=== PATIENT | female | born 1950 ===

== ENCOUNTER → 2018-05-25 | Day surgery (SDC) | payer OTHER ==
[2016-08-08 07:23] VITALS: BMI 25.4
[~2018-05-25] MED LIST: HYDROmorphone 0.5 mg/0.5 ml ISec IVP PRN; Iohexol 240 (50 ml) ONE; Lidocaine 2% Jelly (Uro-Jet) ONE; Midazolam 2 MG/2 ML VIAL ONE; Propofol 10 mg/ml Inj (20 ML) ONE; cefTRIAXone IV 1 gm in Dextros 50 ML IVPB ONE
--- NOTE | 2018-05-25 09:14 | PCM.SURG1 ---
Surgeon's Initial Post Op Note - Surgeon's Notes Surgeon: Manfred Christopher Spragger: none Type of Anesthesia: IV Sedation Pre-Operative Diagnosis: Hematuria Operative Findings: cystitis Post-Operative Diagnosis: same Operation Performed: cysto. bilat rtg pyelogram. bladder bx and fulg. EUA Specimen/Specimens Removed: urine, bladder bx Estimated Blood Loss: EBL {In ML}: 0 Blood Products Given: N/A Drains Used: No Drains Post-Op Condition: Good Date of Surgery/Procedure: 05/25/18 Time of Surgery/Procedure: 08:55
[2018-05-25 11:46] VITALS: O2SAT 96
[2018-05-25 11:50] VITALS: BP 110/64; PULSE 75; RESP 18; TEMP 97.6
--- NOTE | 2018-05-25 13:07 | RAD ---
Date of service: 05/25/2018 HISTORY: HEMATURIA COMPARISON: No prior. FINDINGS: BOWEL: Normal. No obstruction. No free air. BONES: Degenerative changes. OTHER FINDINGS: None. IMPRESSION: No active disease.
--- NOTE | 2018-05-25 18:31 | RAD ---
Date of service: 05/25/2018 PROCEDURE: Intraoperative Fluoroscopy. HISTORY: HEMATURIA FINDINGS: Fluoroscopic assistance was provided for bilateral retrograde study. Please refer to the operative report from Dr. VALDES, MAYAGUEZ. Total fluoroscopic time (continuous mode) utilized during the procedure 10.1 (seconds) Dose report: DLP (mGy-cm): 9.8
--- NOTE | 2018-05-25 20:58 | OP ---
PROCEDURE DATE: 05/25/2018 PREOPERATIVE DIAGNOSIS: History of hematuria. POSTOPERATIVE DIAGNOSES: History of hematuria, cystitis. PROCEDURES: Cystoscopy. Bilateral retrograde pyelogram. Bladder biopsy and fulguration. Exam under anesthesia. OPERATING SURGEON: Inna Christopher MD PROCEDURE FOLLOWS: Retail Shift Leader film of the abdomen was obtained. The patient received perioperative antibiotics. The patient was placed in lithotomy position. After administration of anesthesia via sedation, the genitalia were prepped and draped in a sterile fashion. Procedure was performed under video endoscopic control as well as under fluoroscopic control. A 22-Armenian cystoscope sheath was introduced with obturator. Urine from the bladder was sent for bacteriologic examination. Urethra and bladder were inspected with 30-degree and 70-degree lenses. FINDINGS: There was no bladder tumor. There is no bladder stone. There was mild bladder trabeculation. There was moderate inflammation of the trigone. The ureteral orifices were normal position and shape. There were no focal lesions within the bladder. There was no bladder diverticulum. Occlusive tip retrograde ureteral pyelogram was performed. Iodinated contrast dye was instilled via cone tip catheter into the right ureteral orifice. The urine and kidneys were viewed sequentially with fluoroscopy. Iodinated contrast dye was instilled via cone tip catheter into the left ureteral orifice. The ureters and kidney were viewed sequentially. The retrograde pyelogram demonstrated no evidence of filling defect or obstruction within the ureters or collecting systems. Post-drainage film was subsequently obtained as well and revealed good drainage from both collecting systems. There was abnormal bladder mucosa on the trigone suggesting inflammation. There was slightly granular and reddened focal mucosal changes with some punctate areas of erythema. A sales representative business courses area with cold cup biopsy of the mid trigone was performed using flexible cold cup biopsy forceps. Fulguration was performed at the biopsy site for hemostasis. Hemostasis was complete. The bladder was reinspected with 70-degree lens and confirmed the above findings. The bladder was then drained. Cystoscope sheath was removed. Exam under anesthesia/bimanual examination was performed. There was no abnormal pelvic mass fixation or induration. There was no adnexal mass. The uterus was palpable and mobile. The patient tolerated the procedure without complication. Inna Christopher, MD cc: Shaik Keila MD [facility] # [id number]
== END | disposition home or self-care (01) ==
LOC: C.SDS 05:41
PROVIDERS: ATTEND Urology
DX: N30.31 Trigonitis with hematuria (principal)
CPT/HCPCS: 52005; 52204; 74018; 82948; 87086; 88305; J0696; Q9966

== ENCOUNTER 2018-06-28 02:04 | Emergency (ER) | payer OTHER ==
[2018-06-28 02:06] VITALS: BMI 25.4
--- NOTE | 2018-06-28 03:52 | C.PDOC ---
History Of Present Illness The patient is a 68-year-old female who states she felt a pimple in her left upper back earlier today. She asked her to scratch the area, and notes the area has not stopped bleeding since. She denies pain and has no other complaints at this time. Time Seen by Provider: 06/28/18 02:30 Chief Complaint (Nursing): Abnormal Skin Integrity History Per: Patient History/Exam Limitations: no limitations Onset/Duration Of Symptoms: Hrs Current Symptoms Are (Timing): Still Present Location Of Injury: Left: Back (upper ) Quality Of Symptoms: denies: Painful Additional History Per: Patient Past Medical History Reviewed: Historical Data, Nursing Documentation, Vital Signs Vital Signs: Last Vital Signs Temp 97.8 F 06/28/18 04:36 Pulse 70 06/28/18 04:36 Resp 14 06/28/18 04:36 BP 130/80 06/28/18 04:36 Pulse Ox 98 06/28/18 04:36 - Medical History PMH: Anxiety (NO MEDS. TAKEN), Colonic Polyps, Depression, Gastritis, HTN, Hypercholesterolemia, Kidney Stones (AGE 20/PASSED NO SURGERY), Chronic Kidney Disease Comment Only: Bipolar Disorder (NO MEDS. TAKEN) Surgical History: Appendectomy, Endoscopy Family History: States: Unknown Family Hx - Social History Hx Alcohol Use: Yes Hx Substance Use: No Review Of Systems Skin: Positive for: Other (pimple to left upper back) Physical Exam - Physical Exam Appears: Non-toxic, No Acute Distress Skin: Normal Color, Warm, Dry, Other (Small punctuate lesion to left upper back with active bleeding. No fluctuance, no induration, no warmth ) Extremity: Normal ROM Neurological/Psych: Oriented x3, Normal Speech, Normal Cognition ED Course And Treatment O2 Sat by Pulse Oximetry: 98 (on RA) Progress Note: Pressure dressing applied with gel foam, with resolution of bleeding. Patient is stable for discharge and is advised to f/u with her PMD within 1-2 days for further evaluation. Disposition Counseled Patient/Family Regarding: Diagnosis, Need For Followup, Rx Given - Disposition Referrals: [facility] [Outside] Disposition: HOME/ ROUTINE Disposition Time: 03:49 Condition: STABLE Additional Instructions: Keep pressure dressing on tonight Please follow up with PMD Return to ER if worse Forms: [employer] [facility] (Sinhala), General Discharge Instructions - Clinical Impression Clinical Impression: Scab - PA / HAND REAMER / Resident Statement MD/DO has reviewed & agrees with the documentation as recorded. - Scribe Statement The provider has reviewed the documentation as recorded by the Scribe (Missy Moya) All medical record entries made by the Scribe were at my direction and personally dictated by me. I have reviewed the chart and agree that the record accurately reflects my personal performance of the history, physical exam, medical decision making, and the department course for this patient. I have also personally directed, reviewed, and agree with the discharge instructions and disposition.
[2018-06-28 04:39] VITALS: BP 130/80; PULSE 70; RESP 14; TEMP 97.8; O2SAT 98
== END 2018-06-28 04:39 | disposition home or self-care (01) ==
LOC: C.ER 02:04
DX: R23.4 Changes in skin texture (principal)

== ENCOUNTER 2018-12-22 10:40 | Outpatient (CLI) | payer OTHER | END 2018-12-22 10:41 | disposition home or self-care (01) | LOC: C.MAMMO 10:40 | DX: Z12.31 Encounter for screening mammogram for malignant neoplasm of breast (principal) ==